=== PATIENT | male | born 1975 | race Caucasian/White ===

== ENCOUNTER 2020-06-28 22:41 | Emergency (ER) | payer SELFPAY ==
[~2020-06-28] VITALS: Ht 180.3 cm; Wt 120.0 kg
--- NOTE | 2020-06-28 22:55 | NUR ---
Pt BIBA after having Chest pressure while vaccuming. 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 Pt with known HTN. gave pt double BP meds and a metoprolol. Pt states pt has had increased LE swelling. Pt now 5/10 pain. Denies Nausea or sweats. Pt P/W/D/. Pt on monitor, EKG done. 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 Warm blanket given. Will monitor.
[2020-06-28] MEDS ORDERED: LABETALOL 5MG/ML, 20ML ONE (22:59)
[2020-06-28] MEDS ORDERED: PLEASE ENTER ALLERGIES MC SCH (23:00)
[2020-06-28] MEDS ORDERED: SODIUM CHLORIDE FLUSH 10ML SYR IVF ONE (23:00)
[2020-06-28] MEDS ORDERED: LABETALOL 5MG/ML, 20ML IVPush ONE (23:00)
[2020-06-28 23:04] LABS: BASOPHILS % (AUTO) 1 % (0-1); EOSINOPHILS % (AUTO) 2 % (1-7); LYMPHOCYTES % (AUTO) 29 % (22-44); MEAN CORPUSCULAR HEMOGLOBIN 20.1 pg (27.5-34.5); MEAN CORPUSCULAR HGB CONC 31.6 g/dL (33.2-36.2); MONOCYTES % (AUTO) 8 % (2-9); NEUTROPHILS % (AUTO) 60 % (42-75); PLATELET COUNT 253 x10^3/uL (130-400); RED BLOOD COUNT 6.54 x10^6/uL (4.38-5.82); RED CELL DISTRIBUTION WIDTH 16.4 % (9.4-14.8)
[2020-06-28 23:10] LABS: MD NO
[2020-06-28 23:17] LABS: ALANINE AMINOTRANSFERASE 42 U/L (12-78); ALBUMIN 3.9 g/dL (3.4-5.0); ANION GAP 8 mmol/L (5-15); CALCIUM 8.7 mg/dL (8.5-10.1); CHLORIDE 107 mmol/L (98-107); CREATININE 0.95 mg/dL (0.7-1.3)
[2020-06-28 23:21] LABS: ALKALINE PHOSPHATASE 71 U/L (45-117); BILIRUBIN,TOTAL 0.4 mg/dL (0.2-1.0); TOTAL PROTEIN 7.7 g/dL (6.4-8.2); TROPONIN I < 0.015 ng/mL (0.000-0.045)
[2020-06-28] MEDS ORDERED: ENALAPRILAT 1.25 MG/ML, 2ML IV ONE (23:30)
[2020-06-29 00:54] VITALS: BP 154/99
--- NOTE | 2020-06-29 00:56 | NUR ---
Pt dc'd to home with written and verbal instructions. Pt IV dc'd intact. Pt instructed to f/u with PCP. Pt states understanding. Pt ambulatory out of ED without difficulty and home with a ride.
== END 2020-06-29 00:59 | disposition home or self-care (01) ==
LOC: ED 23:23
DX: R07.2 Precordial pain (principal); I10 Essential (primary) hypertension; F17.210 Nicotine dependence, cigarettes, uncomplicated
CPT/HCPCS: 36415; 71045; 80053; 83880; 84484; 85025; 93005; 96374; 99285; 99406